=== PATIENT | female | born 1970 | race Caucasian/White ===

== ENCOUNTER 2018-06-02 13:36 | Emergency (ER) | END 2018-06-02 17:24 | disposition home or self-care (01) ==

== ENCOUNTER 2018-07-09 06:40 | Emergency (ER) | END 2018-07-09 10:42 | disposition home or self-care (01) ==

== ENCOUNTER 2018-07-12 10:51 | Emergency (ER) | END 2018-07-12 13:11 | disposition home or self-care (01) ==

== ENCOUNTER 2019-06-04 11:43 | Emergency (ER) | payer OTHER ==
[~2019-06-04] VITALS: Ht 167.6 cm; Wt 96.6 kg
[~2019-06-04 11:43] MED LIST: ACET500C5 PO; CIPR500T4 PO; HYDR-4011 PO; IBUP-1542 PO; LOPE2CAP PO; METF500T24 PO; METR500T PO; OMEP40CA3 PO
[2019-06-04 11:49] VITALS: Ht 167.6 cm; Wt 96.6 kg
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
[2019-06-04] MEDS ORDERED: CEPH-443 PO (14:46)
[2019-06-04] MEDS ORDERED: IBUP-1542 PO (14:46)
[2019-06-04 14:59] VITALS: BP 148/75; PULSE 77; RESP 18
[2019-06-15] MEDS ORDERED: BACL10TA PO (08:22)
== END 2019-06-04 15:02 | disposition home or self-care (01) ==
LOC: FTE 11:43
DX: S39.92XA Unspecified injury of lower back, initial encounter (principal); S19.9XXA Unspecified injury of neck, initial encounter; N39.0 Urinary tract infection, site not specified; E11.9 Type 2 diabetes mellitus without complications; E03.9 Hypothyroidism, unspecified; V09.00XA Pedestrian injured in nontraffic accident involving unspecified motor vehicles, initial encounter; Z79.84 Long term (current) use of oral hypoglycemic drugs
CPT/HCPCS: 72040; 72072; 72100; 81003

== ENCOUNTER 2019-06-15 07:27 | Emergency (ER) | payer OTHER ==
[~2019-06-15] VITALS: Ht 152.4 cm; Wt 93.0 kg
[~2019-06-15 07:27] MED LIST changes: +BACL10TA PO; +CEPH-443 PO
[2019-06-15 07:28] VITALS: BP 185/71; PULSE 99; RESP 18; Ht 152.4 cm; Wt 93.0 kg
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
== END 2019-06-15 08:41 | disposition home or self-care (01) ==
LOC: FTE 07:27
DX: N39.0 Urinary tract infection, site not specified (principal); G89.29 Other chronic pain; I10 Essential (primary) hypertension; E11.9 Type 2 diabetes mellitus without complications; E03.9 Hypothyroidism, unspecified; Z79.84 Long term (current) use of oral hypoglycemic drugs
CPT/HCPCS: 81001; 87086; 99283